=== PATIENT | male | born 1945 | race African-American/Black ===

== ENCOUNTER 2018-10-11 09:21 | Emergency (ER) | payer OTHER ==
[~2018-10-11] VITALS: Ht 185.4 cm; Wt 96.6 kg
[~2018-10-11 09:21] MED LIST: AMLODIPINE BESY10 MG; CELEBREX100 MG; LYRICA50 MG; METFORMIN HCL1000 MG
[2018-10-11] MEDS ORDERED: CARVEDILOL25 MG PO (09:28)
[2018-10-11] MEDS ORDERED: LASIX40 MG PO (09:28)
[2018-10-11] MEDS ORDERED: AMIODARONE HCL200 MG (09:29)
[2018-10-11] MEDS ORDERED: ELIQUIS5 MG PO (09:29)
[2018-10-11] MEDS ORDERED: LIPITOR40 MG PO (09:29)
[2018-10-11] MEDS ORDERED: ALDACTONE25 MG PO (09:29)
[2018-10-11] MEDS ORDERED: HUMULIN N100 UNIT/2 SQ (09:30)
[2018-10-11] MEDS ORDERED: TRADJENTA5 MG PO (09:30)
== END 2018-10-11 14:38 | disposition home or self-care (01) ==
LOC: ER 09:21
DX: N28.1 Cyst of kidney, acquired (principal); K57.30 Diverticulosis of large intestine without perforation or abscess without bleeding